=== PATIENT | female | born 1980 | race Caucasian/White ===

== ENCOUNTER 2022-10-18 21:38 | Emergency (ER) | payer BC, OTHER ==
[~2022-10-18] VITALS: Ht 165.1 cm; Wt 90.9 kg
[~2022-10-18 21:38] MED LIST: CYCL5TAB89 PO; TRAM50TA2 PO
[2022-10-19 00:07] VITALS: BP 132/85
[2022-10-19] MEDS ORDERED: CLIN300C70 PO ×2 (00:11→00:12)
== END 2022-10-19 00:20 | disposition home or self-care (01) ==
LOC: EEVIPCON 21:38 → ER 21:38
DX: S51.812A Laceration without foreign body of left forearm, initial encounter (principal); Z88.0 Allergy status to penicillin; Z88.1 Allergy status to other antibiotic agents; Z79.899 Other long term (current) drug therapy; Z98.890 Other specified postprocedural states; W54.0XXA Bitten by dog, initial encounter; Y93.89 Activity, other specified; Y92.89 Other specified places as the place of occurrence of the external cause; Y99.8 Other external cause status
CPT/HCPCS: 12001